=== PATIENT | female | born 1990 | race Caucasian/White ===

== ENCOUNTER 2021-02-20 10:36 | Inpatient (IN) | payer BC ==
[~2021-02-20] VITALS: Ht 172.7 cm; Wt 127.0 kg
[2021-02-20 14:48] LABS: HEMOGLOBIN 14.9 gm/dl (12.3-15.3); RED BLOOD COUNT 4.67 M/UL (4.00-5.10); WHITE BLOOD COUNT 5.1 K/UL (4.5-11.0)
[2021-02-20 15:07] LABS: BUN/CREATININE RATIO 7 (0-10)
[2021-02-21 04:51] LABS: HEMOGLOBIN 13.9 gm/dl (12.3-15.3); RED BLOOD COUNT 4.4 M/UL (4.00-5.10)
[2021-02-21 05:11] LABS: BUN/CREATININE RATIO 9 (0-10)
[2021-02-22 04:18] LABS: HEMOGLOBIN 13.8 gm/dl (12.3-15.3); RED BLOOD COUNT 4.38 M/UL (4.00-5.10); WHITE BLOOD COUNT 5.8 K/UL (4.5-11.0)
[2021-02-22 04:42] LABS: BUN/CREATININE RATIO 10 (0-10)
[2021-02-23 07:32] LABS: HEMOGLOBIN 13.3 gm/dl (12.3-15.3); RED BLOOD COUNT 4.26 M/UL (4.00-5.10)
[2021-02-23 07:33] LABS: WHITE BLOOD COUNT 3.9 K/UL (4.5-11.0)
[2021-02-23 07:55] LABS: BUN/CREATININE RATIO 14 (0-10)
[2021-02-24 07:11] LABS: HEMOGLOBIN 14.4 gm/dl (12.3-15.3)
[2021-02-24 07:24] LABS: BUN/CREATININE RATIO 19 (0-10)
[2021-02-24 07:26] LABS: RED BLOOD COUNT 4.79 M/UL (4.00-5.10); WHITE BLOOD COUNT 5.4 K/UL (4.5-11.0)
[2021-02-24] MEDS ORDERED: DECADRON6 MG PO (10:02)
[2021-02-24] MEDS ORDERED: ELIQUIS2.5 MG PO (10:02)
[2021-02-24] MEDS ORDERED: TESSALON PERLE100 MG PO (10:02)
== END 2021-02-24 13:25 | disposition home or self-care (01) | DRG 177 ==
LOC: ER1 10:36 → CDU 15:34 → M/S 02-21 18:41 → CDU 02-23 11:05 → M/S 02-24 13:25
PROVIDERS: Physician Assistant; ADMIT Internal Medicine
PROC: XW033E5 Introduction of Remdesivir Anti-infective into Peripheral Vein, Percutaneous Approach, New Technology Group 5 (ICD-10-PCS; principal; 2021-02-20)
PROC: 8E0ZXY6 Isolation (ICD-10-PCS; 2021-02-20)
PROC: XW13325 Transfusion of Convalescent Plasma (Nonautologous) into Peripheral Vein, Percutaneous Approach, New Technology Group 5 (ICD-10-PCS; 2021-02-22)
DX: U07.1 COVID-19 (principal); J12.82 Pneumonia due to coronavirus disease 2019; J96.01 Acute respiratory failure with hypoxia; Z68.41 Body mass index [BMI] 40.0-44.9, adult; R19.7 Diarrhea, unspecified; R00.0 Tachycardia, unspecified; E66.9 Obesity, unspecified; D72.819 Decreased white blood cell count, unspecified
CPT/HCPCS: 0240U; 36415; 36600; 71045; 80053; 82728; 82803; 83605; 85025; 85027; 85379; 85652; 86140; 86900; 86901; 86927; 93005; 94640; 94664; 94760; 96372; 99285; J1100; J1650; J1885; J2405; J7030; Q9967

== ENCOUNTER → 2021-03-20 | Outpatient (CLI) | payer BC ==
[~2021-03-20] MED LIST: DECADRON6 MG PO; ELIQUIS2.5 MG PO; TESSALON PERLE100 MG PO
== END ==
LOC: EXRD 11:24
DX: U07.1 COVID-19 (principal)
CPT/HCPCS: 71046

== ENCOUNTER 2022-03-09 07:54 | Emergency (ER) | payer BC ==
[2022-03-09 08:23] LABS: HEMOGLOBIN 10.3 gm/dl (12.3-15.3); RED BLOOD COUNT 3.4 M/UL (4.00-5.10); WHITE BLOOD COUNT 8.8 K/UL (4.5-11.0)
[2022-03-09 08:53] LABS: BUN/CREATININE RATIO 12 (0-10)
== END 2022-03-09 09:15 | disposition home or self-care (01) ==
LOC: ER1 07:54
PROVIDERS: Student in an Organized Health Care Education/Training Program
DX: O99.413 Diseases of the circulatory system complicating pregnancy, third trimester (principal); I47.1 Supraventricular tachycardia; Z3A.31 31 weeks gestation of pregnancy
CPT/HCPCS: 80053; 82550; 82553; 84439; 84443; 84484; 85025; 93005; 99285; J0153

== ENCOUNTER → 2022-03-09 | Outpatient (CLI) | payer BC | LOC: GENOP 09:34 | DX: O99.413 Diseases of the circulatory system complicating pregnancy, third trimester (principal); I47.1 Supraventricular tachycardia; O24.419 Gestational diabetes mellitus in pregnancy, unspecified control; Z3A.31 31 weeks gestation of pregnancy | CPT/HCPCS: 81001; 82962; 83735; G0463 ==

== ENCOUNTER 2022-04-11 22:49 | Inpatient (IN) | payer BC ==
[2022-04-11 23:50] LABS: HEMOGLOBIN 9.4 gm/dl (12.3-15.3); RED BLOOD COUNT 3.41 M/UL (4.00-5.10); WHITE BLOOD COUNT 11.2 K/UL (4.5-11.0)
[2022-04-12] MEDS ORDERED: IBUPROFEN600 MG PO (02:03)
[2022-04-12] MEDS ORDERED: COLACE100 MG PO (02:03)
[2022-04-12] MEDS ORDERED: FERROUS SULFAT325 MG PO (02:03)
[2022-04-12] MEDS ORDERED: PERCOCET 5-3251 EACH PO (02:03)
[2022-04-13 03:10] LABS: HEMOGLOBIN 9.8 gm/dl (12.3-15.3)
== END 2022-04-14 15:27 | disposition home or self-care (01) | DRG 786 ==
LOC: GENOP 22:49 → OB 04-12 00:39
PROVIDERS: Obstetrics & Gynecology; ADMIT Obstetrics & Gynecology
PROC: 4A1HXCZ Monitoring of Products of Conception, Cardiac Rate, External Approach (ICD-10-PCS; 2022-04-12)
PROC: 3E0234Z Introduction of Serum, Toxoid and Vaccine into Muscle, Percutaneous Approach (ICD-10-PCS; 2022-04-12)
PROC: 10D00Z1 Extraction of Products of Conception, Low, Open Approach (ICD-10-PCS; principal; 2022-04-12 00:56)
DX: O32.1XX0 Maternal care for breech presentation, not applicable or unspecified (principal); O60.14X0 Preterm labor third trimester with preterm delivery third trimester, not applicable or unspecified; Z37.0 Single live birth; O99.214 Obesity complicating childbirth; E66.9 Obesity, unspecified; O24.424 Gestational diabetes mellitus in childbirth, insulin controlled; O32.0XX0 Maternal care for unstable lie, not applicable or unspecified; O99.344 Other mental disorders complicating childbirth; F32.A Depression, unspecified; O40.3XX0 Polyhydramnios, third trimester, not applicable or unspecified; Z3A.36 36 weeks gestation of pregnancy; Z79.4 Long term (current) use of insulin; O42.013 Preterm premature rupture of membranes, onset of labor within 24 hours of rupture, third trimester; Z90.49 Acquired absence of other specified parts of digestive tract; Z28.310 Unvaccinated for COVID-19; Z83.3 Family history of diabetes mellitus; Z82.49 Family history of ischemic heart disease and other diseases of the circulatory system; Z81.8 Family history of other mental and behavioral disorders; Z83.49 Family history of other endocrine, nutritional and metabolic diseases; Z23 Encounter for immunization
CPT/HCPCS: 36415; 81001; 84112; 85014; 85018; 85025; 90715; C9113; J0690; J1170; J2405; J2590

== ENCOUNTER 2022-04-23 09:59 | Inpatient (IN) | payer BC ==
[~2022-04-23] VITALS: Ht 172.7 cm; Wt 110.7 kg
[~2022-04-23 09:59] MED LIST changes: +COLACE100 MG PO; +FERROUS SULFAT325 MG PO; +IBUPROFEN600 MG PO; +PERCOCET 5-3251 EACH PO
[2022-04-23 11:20] LABS: HEMOGLOBIN 11.7 gm/dl (12.3-15.3); RED BLOOD COUNT 4.31 M/UL (4.00-5.10); WHITE BLOOD COUNT 18.6 K/UL (4.5-11.0)
[2022-04-23 11:54] LABS: BUN/CREATININE RATIO 13 (0-10)
[2022-04-23] MEDS ORDERED: PRENATAL TABLE1 EAC2 PO (15:00)
[2022-04-24 03:22] LABS: HEMOGLOBIN 10.6 gm/dl (12.3-15.3); RED BLOOD COUNT 3.92 M/UL (4.00-5.10)
[2022-04-24 03:28] LABS: WHITE BLOOD COUNT 12.1 K/UL (4.5-11.0)
[2022-04-25] MEDS ORDERED: DOXYCYCLINE HY100 MG PO (11:19)
[2022-04-25] MEDS ORDERED: METRONIDAZOLE500 MG PO (11:19)
--- NOTE | 2022-04-25 12:24 | NUR ---
SPOKE WITH DR. JEFFERSON PAINTING MACHINE OPERATOR CONTINUE HOME MEDS.
== END 2022-04-25 13:53 | disposition home or self-care (01) | DRG 776 ==
LOC: ER1 09:59 → CDU 14:12 → M/S 14:12
PROVIDERS: Student in an Organized Health Care Education/Training Program; ADMIT Obstetrics & Gynecology
DX: O86.12 Endometritis following delivery (principal); Z90.49 Acquired absence of other specified parts of digestive tract; Z98.891 History of uterine scar from previous surgery
CPT/HCPCS: 36415; 80053; 81001; 83605; 85025; 87040; 87086; 96374; 96375; 99285; J0290; J1580; J1885; J3370; J7030; Q9967; U0002